=== PATIENT | female | born 1975 | race Caucasian/White ===

== ENCOUNTER 2016-11-29 12:03 | Emergency (ER) | payer BC, OTHER ==
[2016-11-29 12:27] VITALS: TEMP 97.9
[2016-11-29] MEDS ORDERED: OXYCODONE/APAP 5/325 TAB PO ONE (12:51)
[2016-11-29] MEDS ORDERED: ONDANSETRON DISINTEGRATING 4 MG TAB PO ONE (12:51)
--- NOTE | 2016-11-29 12:53 | EDPHY ---
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 At the very beginning of the surgical procedure, she reports that the patient moved, and the scalpel cut her on the dorsum of the hand between her 2nd and 3rd finger, and 3rd and 4th fingers. this was a clean scalpel that had not yet come in contact with the patient. The she reports no exposure to bodily fluids. She has a moderate amount of pain and some nausea with this. Her hand is cold she has no numbness, tingling or weakness. This happened within the past hour. No injuries elsewhere. Tetanus up-to-date. Worse with any kind of palpation or movement. Minimal improvement rest. TIME OF INJURY: Less than 1 hour ago TETANUS STATUS: up-to-date REVIEW OF SYSTEMS: Ten systems reviewed and are negative unless otherwise noted in the HPI EXAMINATION General Appearance: Alert, no distress Head: normocephalic, atraumatic Respiratory: No dyspnea or retractions. No distress Cardiovascular: Pulses normal throughout. Brisk cap refill In all fingers Neurological: A&O, sensory symmetric, strength symmetric including interossei the affected hand. Skin: Warm and dry, no rash . There are 2 lacerations. 1.: Dorsum of the right hand between the 2nd and 3rd finger, 1 cm, subcutaneous. 2. Colon dorsum of the right hand, between the 3rd and 4th fingers, 1 cm, superficial. There are no foreign bodies in the wound bed. There is exposure of the extensor apparatus of the right index finger without compromise of the synovial sheath or the tendon structure. Extremities: Nontender, no pedal edema Psychiatric: Mood and affect normal DIFFERENTIAL DIAGNOSES: Including but not limited to simple laceration, complex laceration, laceration with tendon involvement MDM: 12:50 p.m. 2 lacerations to the right hand that are both between fingers. Unable to examine the wound and the hallway given her pain tolerance at this time. As all order pain medication and will move her to room 15 for further care. 1:20 p.m. I have examined the wounds and applied local anesthesia. We will proceed with irrigation and closure 2:05 p.m. wounds have been suture repaired without complication. Good hemostasis. Tolerated well. While suturing the patient she informed me that she has a history of osteogenesis imperfecta. I have ordered x-ray due to the infliction of the wound by scalpel. 2:30 p.m. x-ray as read by me reveals no acute fracture dislocation. She will be discharged home with the above wound care instructions. Follow up here in 7-10 days for suture removal. Follow up with primary care physician or hand surgeon for definitive care as needed. She is comfortable with this plan and discharged home neurovascular intact in stable condition PROCEDURE: Laceration repair #1 Consent: Verbal Location: Dorsum of the right hand, between the 2nd and 3rd finger Length of repair: 1.25 cm Complexity: moderate Layer involvement: single Anesthesia: local, 1% lidocaine with epinephrine, 3 mL Irrigation: Extensive Debridement: none Procedure description: Following good anesthesia, the wound was copiously irrigated. Wound bed was explored and there is no foreign body noted. there is exposure of the extensor apparatus without compromise of the synovial sheath or the tendon. Wound borders were approximated well with good hemostasis. Tolerated well without complication. Suture/Staple material: 5-0 Ethilon, Four simple interrupted sutures Wound care: Routine as discussed Suture/Staple removal: Days PROCEDURE: Laceration repair #2 Consent: Verbal Location: Dorsum of the hand, between the 3rd and 4th fingers Length of repair: 1 cm Complexity: simple Layer involvement: single Anesthesia: local, 1% lidocaine with epinephrine, 3 mL Irrigation: Extensive Debridement: none Procedure description: Following good anesthesia, the wound was copiously irrigated. Wound bed was explored and there is no foreign body noted. Wound borders were approximated well with good hemostasis. Tolerated well without complication. Suture/Staple material: 5-0 Ethilon, 2 simple interrupted sutures Wound care: Routine as discussed Suture/Staple removal: 7-10 Days SUTURE STAPLE REMOVAL: 7-10 days ED Precautions: Worsening pain. Erythema, edema, cyanosis, pallor, paresthesia or anesthesia. SUPERVISION: This patient was independently evaluated without direct examination by the attending physician. Case was discussed with attending physician. Source: Patient Exam Limitations: No limitations - Personal History LMP (Females 10-55): 8-14 Days Ago Current Tetanus Diphtheria and Acellular Pertussis (TDAP): Yes - Medical/Surgical History Other PMH: osteogenesis imperfecta. HTN - Social History Smoking Status: Never smoked Constitutional: Initial Vital Signs Temperature (C) 97.9 F 11/29/16 12:15 Heart Rate 83 11/29/16 12:15 Respiratory Rate 18 11/29/16 12:15 Blood Pressure 141/104 H 11/29/16 12:15 O2 Sat (%) 100 11/29/16 12:15 O2 Delivery Mode Room Air Allergies/Adverse Reactions: No Known Allergies Allergy (Unverified 11/29/16 12:23) Home Medications: Medication Instructions Recorded Cephalexin [Keflex (*)] 500 mg PO TID #30 cap 11/29/16 Medical Decision Making - Diagnostics Imaging Results: Imaging Impressions Hand X-Ray 11/29/16 14:05 Impression: Negative right hand radiographs. - Data Points Medications Given: Discontinued Medications Ondansetron HCl (Zofran Odt) 4 mg PO EDNOW ONE Stop: 11/29/16 12:52 Last Admin: 11/29/16 13:03 Dose: 4 mg Oxycodone/Acetaminophen (Percocet 5/325) 1 tab PO EDNOW ONE Stop: 11/29/16 12:52 Last Admin: 11/29/16 13:04 Dose: 1 tab Departure - Departure Disposition: Home, Routine, Self-Care Clinical Impression: Hand laceration Qualifiers: Encounter type: initial encounter Foreign body presence: without foreign body Laterality: right Qualified Code(s): S61.411A - Laceration without foreign body of right hand, initial encounter Condition: Good Instructions: Care For Your Stitches (ED), Laceration (ED) Additional Instructions: Daily wound care as discussed. Mild weight-bearing to the hand until sutures are removed. Follow up here in 5-7 days for suture removal. Follow up with primary care physician in 2 days for wound check. Referrals: Keith Cueva MD [Medical Doctor] - As per Instructions Janes Palma MD [Medical Doctor] - As per Instructions Stand Alone Forms: Work Limited Duty, Work Excuse Prescriptions: Cephalexin [Keflex (*)] 500 mg PO TID #30 cap
[2016-11-29 14:30] VITALS: BP 122/68; PULSE 71; RESP 16; O2SAT 96
--- NOTE | 2016-11-30 14:43 | EDPHY ---
ED Progress Note Narrative: Patient came to the emergency department today, 11/30/2016 at 2:42 p.m. for wound check and I was asked by the triage nurse to evaluate wound. The wound shows no signs of infection, negative kanavel sign, no erythema. There is soft tissue swelling and ecchymosis noted distally. She notes that she has been unable to keep the area consistently elevated as she has been having to work. I recommend she keep the area elevated. She inquired about analgesia. I agreed to provide her a small prescription for Percocet to be taken when she is not working only and not operating machinery or taking care of patients. (Sammy Maradiaga) I did not see the patient while she was in the emergency department. However her care was discussed with the PA while the patient was in the department. I agree with treatment plan and management (Michael Rodríguez)
== END 2016-11-29 14:27 | disposition home or self-care (01) ==
PROC: 0HQFXZZ Repair Right Hand Skin, External Approach (ICD-10-PCS; principal; 2016-11-29)
DX: S61.411A Laceration without foreign body of right hand, initial encounter (principal); I10 Essential (primary) hypertension; W26.0XXA Contact with knife, initial encounter; Y99.0 Civilian activity done for income or pay; Y93.89 Activity, other specified

== ENCOUNTER 2017-10-20 13:21 | Emergency (ER) | payer MEDICAID, OTHER ==
--- NOTE | 2017-10-20 14:11 | EDPHY ---
General - History Smoking Status: Never smoked Time Seen by Provider: 10/20/17 13:59 Narrative: CHIEF COMPLAINT: Acute low back pain HISTORY OF PRESENT ILLNESS: Patient complains of right lower back pain. This started approximately 2 days ago. This is right lower back. No trauma or injury. She feels as though she is having muscle spasms. Moderate to severe. No improvement with her chronic pain medication. No numbness or tingling. No fall. No bony tenderness. No radicular pain. She contacted her established shipyard painter helper, who has performed steroid injection for this in the past with significant improvement. They were unable to see her for 2 weeks. No other associated complaints or modifying factors. REVIEW OF SYSTEMS: Ten systems reviewed and are negative unless otherwise noted in the HPI PCP: Dr. Rizo SPECIALISTS: [facility] [place] [facility] PAST MEDICAL HISTORY: Osteogenesis imperfecta PAST SURGICAL HISTORY: No recent surgical history SOCIAL HISTORY: Nonsmoker. Lives and works here locally. Works as a veterinary hospital shift lead FAMILY HISTORY: Noncontributory EXAMINATION General Appearance: Alert, no distress Cardiovascular: Regular rate. Symmetric DP pulses. Back: Soft tissue tenderness on the right lumbosacral plexus. No midline tenderness. No step-off, crepitus or deformity. Neurological: GCS 15. A&O, nonfocal, antalgic but steady gait. Patellar reflexes are symmetric at 2+. Normal strength and proprioception of the great toe symmetrically. No footdrop. Skin: Warm and dry, no rash Extremities: Nontender, no pedal edema. Symmetric range of motion lower extremities. Psychiatric: Mood and affect normal DIFFERENTIAL DIAGNOSES: Including but not limited to strain, sprain, muscle spasm, musculoskeletal inflammation MDM: 2:10 p.m. Acute low back muscular strain versus muscle spasm. There is no bony tenderness. No trauma. No midline tenderness or pain. No motor or sensory complaints. No evidence of acute cord compression or cauda equina. She does have osteogenesis imperfecta and does not want an x-ray as she feels she has no bony injury. I will treat her with short course of steroid and muscle relaxant as this has relieved her symptoms in the past. She has a contract with a shipyard painter helper and has pain medication at home for this. She is not requesting any further pain medication. She will contact her established physicians for outpatient care. We discussed ED precautions and she is discharged home stable condition, fully ambulatory. SUPERVISION: This patient was independently evaluated without direct involvement of or examination by the attending physician. (Dimitrios Negron) Medical Decision Making: I did not see this patient while she was in the emergency department. However her care was discussed with the PA while the patient was in the department. Agree with treatment plan and management (Michael Rodríguez) - Objective Vital Signs: Initial Vital Signs Temperature (C) 36.7 C 10/20/17 13:27 Heart Rate 75 10/20/17 13:27 Respiratory Rate 16 10/20/17 13:27 Blood Pressure 163/114 H 10/20/17 13:27 O2 Sat (%) 97 10/20/17 13:27 O2 Delivery Mode Room Air Allergies/Adverse Reactions: No Known Allergies Allergy (Unverified 11/29/16 12:23) Home Medications: Medication Instructions Recorded Hydrocodone/APAP 5/325 [[place] 1 tab PO Q6 PRN #5 tab 11/30/16 5/325 (RX)] Diazepam [Valium 5 MG (*)] 5 mg PO TID PRN #9 tab 10/20/17 buPROPion 10/20/17 predniSONE [Deltasone] 60 mg PO DAILY #15 tablet 10/20/17 Departure - Departure Disposition: Home, Routine, Self-Care Clinical Impression: Acute low back pain, Spasm of muscle of lower back Condition: Good Instructions: Low Back Strain (ED), Muscle Spasm (ED) Additional Instructions: 1. Contact your established primary care physician to discuss your ongoing pain. 2. Valium as prescribed as needed. Do not mix with alcohol or narcotics 3. Steroid burst as prescribed to completion 4. Contact your shipyard painter helper 5. blood pressure was mildly elevated here. This may be due to pain, but you should follow up with primary care physician for re-evaluation. Referrals: EMERSON RIZO [Other] - As per Instructions Stand Alone Forms: Work Excuse Prescriptions: Diazepam [Valium 5 MG (*)] 5 mg PO TID PRN #9 tab PRN Reason: Spasms predniSONE [Deltasone] 60 mg PO DAILY #15 tablet
[2017-10-20 14:28] VITALS: BP 129/100; PULSE 71; RESP 18; TEMP 98.2; O2SAT 99
== END 2017-10-20 14:34 | disposition home or self-care (01) ==
DX: M54.5 Low back pain (principal); M62.830 Muscle spasm of back

== ENCOUNTER 2017-10-22 12:18 | Emergency (ER) | payer MEDICAID ==
[2017-10-22 12:24] VITALS: BP 130/88; PULSE 81; RESP 16; TEMP 98.6; O2SAT 98
--- NOTE | 2017-10-22 13:00 | EDPHY ---
H & P Time Seen by Provider: 10/22/17 12:44 HPI/ROS: CHIEF COMPLAINT: Hives HISTORY OF PRESENT ILLNESS: Patient is a 42-year-old female who presents emergency department with eyes. Patient states she injured her back on Tuesday. She was seen in the emergency department on 10/11/2017. At that time she was prescribed prednisone as well as Valium. She feels as though the rash is related to the Valium. She has never had this medication before. She describes the rash as itchy. It is now improved. She denies any shortness of breath. No throat swelling. REVIEW OF SYSTEMS: My complete review of systems is negative except as mentioned in the HPI. Past Medical/Surgical History: Includes osteogenic imperfecta, hypertension, chronic pain Smoking Status: Never smoked Physical Exam: Vitals noted GENERAL: Well-appearing, in no acute distress, alert. HEENT: Eyes normal to inspection, normal pharynx, no signs of dehydration. Uvula midline. No swelling. NECK: No thyromegaly, no lymphadenopathy, supple. RESPIRATORY: Clear to auscultation bilaterally, no rales, rhonchi or wheezing. CVS: Regular rate and rhythm, no rubs, murmurs, or gallops. ABDOMEN: Soft, nontender, nondistended, no organomegaly. BACK: Normal to inspection, no CVA tenderness. SKIN: Normal color, no rash, warm, dry. No pallor. EXTREMITIES: No pedal edema, no calf tenderness, no Homans sign or cords, no joint swelling. NEURO/PSYCH: Alert and oriented x3, normal mood and affect, normal motor sensory exam. Constitutional: Initial Vital Signs Temperature (C) 37.0 C 10/22/17 12:21 Heart Rate 81 10/22/17 12:21 Respiratory Rate 16 10/22/17 12:21 Blood Pressure 130/88 H 10/22/17 12:21 O2 Sat (%) 98 10/22/17 12:21 O2 Delivery Mode Room Air Allergies/Adverse Reactions: No Known Allergies Allergy (Verified 10/22/17 12:19) Home Medications: Medication Instructions Recorded Hydrocodone/APAP 5/325 [[place] 1 tab PO Q6 PRN #5 tab 11/30/16 5/325 (RX)] Diazepam [Valium 5 MG (*)] 5 mg PO TID PRN #9 tab 10/20/17 buPROPion 10/20/17 predniSONE [Deltasone] 60 mg PO DAILY #15 tablet 10/20/17 Cyclobenzaprine [Flexeril] 10 mg PO TID #15 tab 10/22/17 Medical Decision Making ED Course/Re-evaluation: In the emergency department I discussed possible etiologies with the patient. I answered all her questions. I discussed that was thought to have hives secondary to allergic reaction when she was on the prednisone. I reviewed Dr. Rodríguez note. Patient will be changed from Valium to Flexeril. She is given warnings prior to leaving. She will return with worsening symptoms. Differential Diagnosis: The patient has no significant hives on exam. She does not appear anaphylactic. I did discussed this was thought to have hives while on prednisone. However, the patient is convinced this is from her muscle relaxer. This will be changed. She is given warnings prior to leaving. She will follow up with her primary care physician. Departure - Departure Disposition: Home, Routine, Self-Care Clinical Impression: Hives Condition: Good Instructions: Urticaria (ED) Additional Instructions: Return with worsening rash or any other concerns. Discontinue your Valium. Referrals: LILI VELAZCO [Other] - 1-2 days without fail Prescriptions: Cyclobenzaprine [Flexeril] 10 mg PO TID #15 tab
== END 2017-10-22 13:06 | disposition home or self-care (01) ==
DX: L50.9 Urticaria, unspecified (principal); I10 Essential (primary) hypertension